=== PATIENT | male | born 1970 | race Caucasian/White ===

== ENCOUNTER 2018-07-30 11:32 | Emergency (ER) | payer MEDICAID ==
[~2018-07-30] VITALS: Ht 188 cm; Wt 66.4 kg
[2018-07-30 11:41] VITALS: BP 123/87
[2018-07-30] MEDS ORDERED: TETanus/Pertussis (Acell)/Diphther VAC/PF (Tdap-Adult) 0.5ml syringe IM ONE (12:25)
[2018-07-30] MEDS ORDERED: LIDOcaine 1% w/epiNEPHrine 1:200,000 30ml vial IM ONE (12:25)
[2018-07-30] MEDS ORDERED: SULF1TAB49 PO (12:37)
== END 2018-07-30 13:49 | disposition home or self-care (01) ==
LOC: ER 11:33
DX: L02.811 Cutaneous abscess of head [any part, except face] (principal); Z88.1 Allergy status to other antibiotic agents; Z88.8 Allergy status to other drugs, medicaments and biological substances; Z79.899 Other long term (current) drug therapy; Z56.0 Unemployment, unspecified
CPT/HCPCS: 10060; 87070; 90471; 90715; 99283; J3490; 87077; 87186

== ENCOUNTER 2021-08-21 18:56 | Emergency (ER) | payer SELFPAY ==
[~2021-08-21] VITALS: Ht 188 cm; Wt 81.8 kg
[2021-08-21 18:58] VITALS: BP 146/90
[2021-08-21] MEDS ORDERED: amox tr/potassium clavulanate 875/125mg TAB PO ONE (19:55)
[2021-08-21] MEDS: Cipro HC otic suspension 10ML bottle RIGHT EAR SCH (20:11)
[2021-08-21] MEDS ORDERED: AMOX-117 PO (20:40)
== END 2021-08-21 21:02 | disposition home or self-care (01) ==
LOC: ER 18:56
DX: H60.502 Unspecified acute noninfective otitis externa, left ear (principal); Z88.1 Allergy status to other antibiotic agents; Z88.8 Allergy status to other drugs, medicaments and biological substances
CPT/HCPCS: 99283

== ENCOUNTER 2021-10-21 13:19 | Emergency (ER) | payer MEDICAID ==
[~2021-10-21] VITALS: Ht 189.2 cm; Wt 81.8 kg
[2021-10-21] MEDS ORDERED: sulfamethoxazole/trimethoprim DS (800/160mg) tablet PO ONE (14:10)
[2021-10-21] MEDS ORDERED: HYDROcodone/acetaminophen 5mg/325mg tablet PO ONE (14:10)
[2021-10-21 15:09] LABS: BASOPHILS # (AUTO) 0.1 X10'3 (0-0.2); BASOPHILS % (AUTO) 0.6 % (0-1); EOSINOPHILS # (AUTO) 0.1 X10'3 (0-0.9); EOSINOPHILS % (AUTO) 1.1 % (0-6); HEMOGLOBIN 14.5 g/dl (14.0-17.9); LYMPHOCYTES # (AUTO) 1.1 X10'3 (1.1-4.8); LYMPHOCYTES % (AUTO) 9.5 % (21-51); MEAN CORPUSCULAR HEMOGLOBIN 31.5 PG (27.0-31.0); MEAN CORPUSCULAR HGB CONC 34.5 g/dL (33.0-36.5); MEAN CORPUSCULAR VOLUME 91.3 FL (78-98); MEAN PLATELET VOLUME 8.8 FL (7.4-10.4); MONOCYTES # (AUTO) 1.9 X10'3 (0-0.9); MONOCYTES % (AUTO) 15.6 % (2-12); NEUTROPHILS # (AUTO) 8.9 X10'3 (1.8-7.7); NEUTROPHILS % (AUTO) 73.2 % (42-75); PLATELET COUNT 287 X10'3 (140-440); RED BLOOD COUNT 4.59 X10'6 (4.70-6.10); RED CELL DISTRIBUTION WIDTH 13.8 % (11.5-14.5); WHITE BLOOD COUNT 12.2 X10'3 (4.5-11.0)
[2021-10-21 15:18] LABS: ALANINE AMINOTRANSFERASE 52 U/L (12-78); ALBUMIN 3.8 G/DL (3.4-5.0); ALKALINE PHOSPHATASE 86 IU/L (46-116); ANION GAP 9 (8-16); ASPARTATE AMINO TRANSFERASE 63 U/L (10-37); BILIRUBIN,TOTAL 1.2 MG/DL (0.1-1.0); BLOOD UREA NITROGEN 22 MG/DL (7-18); BUN/CREATININE RATIO 21.6 (5.4-32.0); CALCIUM 9.3 MG/DL (8.5-10.1); CHLORIDE 103 MMOL/L (99-107); CREATININE 1.02 MG/DL (0.60-1.10); GLUCOSE 116 MG/DL (70-104); POTASSIUM 3.4 MMOL/L (3.5-5.1); SODIUM 139 MMOL/L (135-145); TOTAL CARBON DIOXIDE 27.1 MMOL/L (24-32); TOTAL PROTEIN 7.6 G/DL (6.4-8.2); eGFR 77 ML/MIN
[2021-10-21 16:13] LABS: PLATELET ESTIMATE NORMAL; TOTAL CELLS COUNTED 100
[2021-10-21 16:20] VITALS: BP 124/89
[2021-10-21 16:32] LABS: GLUCOSE, URINE NEGATIVE (Neg); KETONES,URINE 15 mg/dl (Neg); LEUKOCYTE ESTERASE ,URINE NEGATIVE (Neg); NITRITES, URINE NEGATIVE (Neg); OCCULT BLOOD,URINE NEGATIVE (Neg); PH,URINE 5.5 (4.8-8.0); PROTEIN,URINE TRACE mg/dl (Neg); URINE AMPHETAMINE SCREEN POSITIVE (Neg); URINE BARBITUATE SCREEN NEGATIVE (Neg); URINE BENZODIAZEPINES SCREEN NEGATIVE (Neg); URINE CANNABINOID SCREEN NEGATIVE (Neg); URINE COCAINE SCREEN NEGATIVE (Neg); URINE METHADONE SCREEN NEGATIVE (Neg); URINE OPIATE SCREEN POSITIVE (Neg); URINE PHENCYCLIDINE SCREEN NEGATIVE (Neg); UROBILINOGEN,URINE 0.2 E.U/dL (0.2-1.0)
[2021-10-21 16:40] LABS: COLOR,URINE AMBER (Yellow); UA COLLECTION TYPE VOIDED
[2021-10-21 16:41] LABS: CLARITY,URINE SLIGHTLY CLOUDY (Clear)
[2021-10-21 16:45] LABS: BACTERIA,URINE 1+ /HPF (Neg); MUCUS STRANDS MODERATE /LPF (Neg); RBC,URINE NONE SEEN /HPF (0-2); SQUAMOUS EPITHELIAL CELL,UR NONE SEEN /LPF (FEW)
[2021-10-21] MEDS ORDERED: vancomycin/NS 1 GM ADD-VANTAGE 250 ML IV ONE ×2 (16:45→18:30)
[2021-10-21] MEDS ORDERED: levoFLOXACIN-Levaquin 750MG/D5 150 ML IV ONE (16:45)
[2021-10-21 16:46] LABS: HYALINE CASTS 0-3 /LPF (NEGATIVE)
[2021-10-21] MEDS ORDERED: NO HOME MEDS (17:38)
--- NOTE | 2021-10-21 17:52 | NUR ---
PT SIGNED AMA AFTER PROVIDER EXPLAINED THE RISK. IV WAS DCD
== END 2021-10-21 17:55 | disposition left against medical advice (07) ==
LOC: ER 13:21
DX: S63.656A Sprain of metacarpophalangeal joint of right little finger, initial encounter (principal); Z88.1 Allergy status to other antibiotic agents; Z79.899 Other long term (current) drug therapy; Z56.0 Unemployment, unspecified; W22.8XXA Striking against or struck by other objects, initial encounter; Y93.89 Activity, other specified; Y92.89 Other specified places as the place of occurrence of the external cause; Y99.8 Other external cause status
CPT/HCPCS: 36415; 73130; 80053; 80305; 81001; 83605; 84145; 85007; 85025; 87040; 87088; 99284

== ENCOUNTER 2022-01-20 08:33 | Emergency (ER) | payer MEDICAID ==
[~2022-01-20] VITALS: Ht 188 cm; Wt 77.3 kg
[~2022-01-20 08:33] MED LIST: NO HOME MEDS
[2022-01-20] MEDS ORDERED: oxyCODONE/APAP 5-325mg tablet PO ONE ×2 (11:25→11:55)
[2022-01-20] MEDS ORDERED: BUPIVAcaine 0.25% w/Epi /PF 30ml vial SQ ONE (12:10)
--- NOTE | 2022-01-20 12:41 | NUR ---
WAITING FOR PROVIDER TO PERFORM BLOCK BEFORE SHOULDER IMMOB IS PLACED.
[2022-01-20] MEDS ORDERED: OXYC-145 PO (13:18)
[2022-01-20] MEDS ORDERED: NALO4SPR BOTHNARES (13:20)
[2022-01-20 13:48] VITALS: BP 125/82
== END 2022-01-20 13:50 | disposition home or self-care (01) ==
LOC: ER 08:34
DX: S42.292A Other displaced fracture of upper end of left humerus, initial encounter for closed fracture (principal); S42.212A Unspecified displaced fracture of surgical neck of left humerus, initial encounter for closed fracture; S00.81XA Abrasion of other part of head, initial encounter; M79.642 Pain in left hand; Z88.1 Allergy status to other antibiotic agents; Z88.8 Allergy status to other drugs, medicaments and biological substances; Z56.0 Unemployment, unspecified; Y08.89XA Assault by other specified means, initial encounter; Y93.89 Activity, other specified; Y92.89 Other specified places as the place of occurrence of the external cause; Y99.8 Other external cause status
CPT/HCPCS: 29105; 64450; 73030; 73130; 99284; A4565

== ENCOUNTER 2022-03-19 11:01 | Emergency (ER) | payer MEDICAID ==
[~2022-03-19] VITALS: Ht 188 cm; Wt 86.0 kg
[~2022-03-19 11:01] MED LIST changes: +NALO4SPR BOTHNARES; +OXYC-145 PO
[2022-03-19 11:11] VITALS: BP 126/85
[2022-03-19] MEDS ORDERED: LEVO-65 PO (11:33)
[2022-03-19] MEDS ORDERED: PRED20TA PO (11:33)
[2022-03-19] MEDS ORDERED: NAPR-56 PO (11:33)
== END 2022-03-19 11:44 | disposition home or self-care (01) ==
LOC: ER 11:01
DX: H65.194 Other acute nonsuppurative otitis media, recurrent, right ear (principal); Z88.1 Allergy status to other antibiotic agents; Z88.8 Allergy status to other drugs, medicaments and biological substances
CPT/HCPCS: 99284